=== PATIENT | female | born 1960 | race Caucasian/White ===

== ENCOUNTER → 2017-01-10 | Outpatient (CLI) | payer MEDICARE ==
[~2017-01-10] MED LIST: CIPRO250 MG PO; ESTRACE; FLOMAX0.4 M1 PO; KEFLEX500 MG PO; LAMISIL PO; LORTAB 7.5-5001 TAB PO; NEXIUM; PRILOSEC OTC DAILY; PRILOSEC PO; PRILOSEC20 M1 PO; SYNTHROID; SYNTHROID PO; SYNTHROID0.1 MG; SYNTHROID0.1 MG PO; ULTRAM PO; VICODIN 5/1 TAB 5/50 PO
--- NOTE | ~2017-01-10 | CT2 ---
[facility] A Service of [facility] RADIOLOGY TEXT RESULTS PATIENT: CHRIS SWIFT LOCATION: [facility] : 56 UNIT #: [id number] AGE: [address]: Blake Can MD SEX: F ORDER DR: [id number] [facility] [address] [place], [place] [address] [id number] O MR#: [id number] Acc #: [id number] NAME: CHRIS SWIFT : 1960 SEX: F STUDY DATE/TIME: 01/10/2017 12:57 UNIT: [facility] ROOM: STUDY DESCRIPTION: CT Abd and Pelv W Cont Attending Physician: Blake Can M.D. Referring Physician: Blake Can M.D. Ordering Physician: Blake Can M.D. Primary Care Physician: Blake Can M.D. MEDICAL IMAGING REPORT This report is preliminary unless electronic signature is present EXAM CT abdomen and pelvis with contrast INDICATION 56-year-old female with history of epigastric pain for [address] of the abdomen and pelvis was performed following the administration of oral and IV contrast. Coronal and sagittal reformatted images were obtained. This CT exam was performed with one or more of the following radiation dose reduction techniques: automatic exposure control, adjustment of mA and/or kV according to patient size, and iterative reconstruction. COMPARISON Comparison with 01/31/2013. FINDINGS The lung bases are clear. The liver is unremarkable. Gallbladder is unremarkable. The spleen is unremarkable. Stable cortical thinning in the lower pole of the left kidney. There is a stable mild right pelvocaliectasis. The adrenal glands are unremarkable. The pancreas is unremarkable. The stomach is unremarkable. There are no dilated loops of small bowel. PELVIS: Colon is unremarkable. There is no free fluid. Hysterectomy. The bone windows are unremarkable. IMPRESSION 1. There are no CT findings to explain the patient's symptoms. 2. Please see full report for additional incidental findings. [facility] A Service of [facility] RADIOLOGY TEXT RESULTS PATIENT: CHRIS SWIFT LOCATION: [facility] : 56 UNIT #: [id number] AGE: [address]: Blake Can MD SEX: F ORDER DR: Dictated by... Roe De Santiago M.D. THIS IS AN ELECTRONICALLY VERIFIED REPORT Roe De Santiago M.D. at 01/10/2017 4:58 PM ARS/krystle TD: 01/10/2017 16:10 JOB #: [id number] MEDICAL IMAGING REPORT COPY
== END | disposition home or self-care (01) ==
LOC: CCAT 11:33
DX: R10.13 Epigastric pain (principal)
CPT/HCPCS: 74177; Q9967